=== PATIENT | male | born 1990 | race Two or more races ===

== ENCOUNTER 2025-01-08 06:43 | Emergency (ER) | payer OTHER ==
[~2025-01-08] VITALS: Ht 167.6 cm; Wt 65.0 kg
[2025-01-08] MEDS: ONDANSETRON ODT 4 MG TAB PO ONE (07:19)
[2025-01-08 07:20] VITALS: PULSE 105; RESP 18; O2SAT 97
[2025-01-08 07:22] LABS: Basophils # (auto) 0 10 ^3/uL (0-0.2); Basophils % (auto) 0.4 % (0.0-2.0); Eosinophils # (auto) 0.2 10 ^3/uL (0-0.8); Eosinophils % (auto) 2.3 % (0.0-7.0); Hematocrit 47.3 % (41.0-53.0); Hemoglobin 15.8 g/dL (13.5-17.5); Lymphocytes # (auto) 1.5 10 ^3/uL (0.4-5.4); Lymphocytes % (auto) 17.9 % (10.0-50.0); Mean Corpuscular Hemoglobin 29.1 pg (28.0-32.0); Mean Corpuscular Hgb Conc. 33.5 g/dL (32.0-36.0); Mean Corpuscular Volume 86.8 fL (80.0-100.0); Monocytes # (auto) 0.9 10 ^3/uL (0-1.3); Monocytes % (auto) 10.6 % (0.0-12.0); Neutrophils # (auto) 5.8 10 ^3/uL (1.6-8.6); Neutrophils % (auto) 68.8 % (37.0-80.0); Platelet Count (auto) 221 10^3/uL (140-450); Red Blood Cells 5.45 10^6/uL (4.5-5.90); Red Cell Distribution Width 12.9 % (11.8-14.3); White Blood Cell 8.4 10^3/uL (4.4-10.8)
[2025-01-08 07:32] LABS: Alanine Aminotransferase 38 U/L (7-40); Albumin 4.4 g/dL (3.2-4.8); Alkaline Phosphatase 81 U/L (46-116); Anion Gap 8 (5-15); Aspartate Aminotransferase 24 U/L (13-40); BUN/Creatinine Ratio 12.8 (10.0-20.0); Blood Urea Nitrogen 12 mg/dL (9-23); Calcium 9.1 mg/dL (8.7-10.4); Carbon Dioxide 28 mmol/L (20-31); Chloride 105 mmol/L (98-107); Potassium 4.2 mmol/L (3.5-5.1); Sodium 141 mmol/L (136-145); Total Protein 6.7 g/dL (5.7-8.2)
[2025-01-08 07:33] LABS: Bilirubin, Total 0.5 mg/dL (0.2-1.0)
[2025-01-08 07:40] LABS: Urine Bacteria None Seen /hpf (None Seen)
[2025-01-08 07:41] LABS: Glucose 63 mg/dL (74-106)
--- NOTE | 2025-01-08 07:43 | ED.PDOC ---
GI ASSESSMENT HPI Comments 34 year old male presents to the ED with a chief complaint of diarrhea onset 2 days. Patient states he was admitted in a hospital for about 25 days due to diarrhea, was discharged about 2 weeks ago with antibiotics, finished course. Patient noticed diarrhea stopped 3 days ago, began taking Pepto Bismol, began experiencing black tarry stools, nausea, burning with urination 2 days ago. He has also been experiencing flu like symptoms including cough, congestion. Denies any PMHx as well as fever, chills, vomiting, hematuria, hematemesis. No other symptoms or modifying factors present at this time. Chief Complaint: Diarrhea Time Seen by MD: 06:50 Primary Care Provider: Yoly Mayo Reviewed Notes: Medications, Allergies Allergies: Coded Allergies: NO KNOWN ALLERGIES (Unverified , 01/08/25) Information Source: Patient Mode of Arrival: Ambulatory Timing: Days Duration: Since onset Prehospital treatment: Other (Pepto ) Quality: Sharp Vomitus: None Stool: Tarry Severity: Moderate Recent: None Recent Hx of: None Pain Location: Diffuse Modifying Factors: Nothing Associated sign and symptoms: Nausea, Diarrhea, Abdominal Pain Past Medical History PAST MEDICAL HISTORY: Denies Surgical History (Other): RT knee surgery Family History Family History: Reviewed,noncontributory to illness, No family hx of Cancer, No family hx of DM, No family hx of Heart bella, No family hx of HTN, No family hx ofKidney bella, No family hx of Liver bella, No family hx of Lung bella, No family hx of Stroke Social History Smoker: Non-Smoker Alcohol: Denies ETOH Use Drugs: Denies Drug Use Lives In: Home Constitutional: denies: chills, diaphoresis, fatigue, fever, malaise, sweats, weakness, others EENTM: reports: nose congestion; denies: blurred vision, double vision, ear bleeding, ear discharge, ear drainage, ear pain, ear ringing, eye pain, eye redn ess, hearing loss, mouth pain, mouth swelling, nasal discharge, nose bleeding, nose pain, photophobia, tearing, throat pain, throat swelling, voice changes, others Respiratory: reports: cough; denies: hemoptysis, orthopnea, SOB at rest, shortness of breath, SOB with excertion, stridor, wheezing, others Cardiovascular: denies: chest pain, dizzy spells, diaphoresis, Dyspnea on exertion, edema, irregular heart beat, left arm pain, lightheadedness, palpitations, PND, syncope, others Gastrointestinal: reports: abdominal pain, diarrhea, nausea, others (dark tarry stool); denies: abdomen distended, blood streaked bowels, constipated, dysphagia, difficulty swallowing, hematemesis, melena, poor appetite, poor fluid intake, rectal bleeding, rectal pain, vomiting Genitourinary: denies: burning, dysuria, flank pain, frequency, hematuria, incontinence, penile discharge, penile sore, pain, testicle pain, testicle swelling, urgency, others Neurological: denies: dizziness, fainting, headache, left sided numbness, left sided weakness, numbness, paresthesia, pre-existing deficit, right sided numbness, right sided weakness, seizure, speech problems, tingling, tremors, weakness, others Musculoskeletal: denies: back pain, gout, joint pain, joint swelling, muscle pain, muscle stiffness, neck pain, others Integumetry: denies: bruises, change in color, change in hair/nails, dryness, laceration, lesions, lumps, rash, wounds, others Allergic/Immunocompromised: denies: Difficulty Healing, Frequent Infections, Hives, Itching, others Hematologic/Lymphatic: denies: anemia, blood clots, easy bleeding, easy bruising, swollen glands, others Endocrine: denies: excessive hunger, excessive sweating, excessive thirst, excessive urination, flushing, intolerance to cold, intolerance to heat, unexplained weight gain, unexplained weight loss, others Psychiatric: denies: anxiety, bipolar disorder, depression, hopeless, panic disorder, schizophrenia, sleepless, suicidal, others All Other Systems: Reviewed and Negative Physical Exam General Appearance: No Apparent Distress, Normal HEENT: Normal ENT Inspection, Pharynx Normal, TMs Normal Neck: Full Range of Motion, Non-Tender, Normal, Normal Inspection Respiratory: Chest Non-Tender, Lungs Clear, No Accessory Muscle Use, No Respiratory Distress, Normal Breath Sounds Cardiovascular: No Edema, No JVD, No Murmur, No Gallop, Normal Peripheral Pulses, Regular Rate/Rhythm Breast Exam: Deferred Gastrointestinal: No Organomegaly, Non Tender, No Pulsatile Mass, Normal Bowel Sounds, Soft Genitalia: Deferred Pelvic: Deferred Rectal: Deferred Extremities: No calf tenderness, Normal capillary refill, Normal inspection, Normal range of motion, Non-tender, No pedal edema Musculoskeletal : Apperance: Normal Neurologic: Alert, automation machine operator II-XII nml as Tested, No Motor Deficits, Normal Affect, Normal Mood, No Sensory Deficits Cerebellar Function: Normal Reflexes: Normal Skin: Dry, Normal Color, Warm Lymphatic: No Adenopathy Was a procedure done? Was a procedure done?: No GI differential Dx Differential Diagnosis: Gastroenteritis, GI hemorrhage, UTI, Electrolyte Imbalance Other Differential Diagnosis URI, Pepto Bismol use , UTI, cystitis, gonorrhea chlamydia X-Ray, Labs, Meds, VS Vital Signs Date Time Temp Pulse Resp B/P (MAP) Pulse Ox O2 Delivery O2 Flow Rate FiO2 01/08/25 09:20 98.7 90 16 107/84 (92) 97 98.7 01/08/25 07:20 105 18 97 Room Air* 0 21 01/08/25 07:19 105 18 141/87 (105) 97 01/08/25 06:50 98.2 101 18 119/76 (90) 96 98.2 Lab Test 01/08/25 07:06 01/08/25 07:00 01/08/25 06:00 Range/Units White Blood Count 8.4 4.4-10.8 10^3/uL Red Blood Count 5.45 4.5-5.90 10^6/uL Hemoglobin 15.8 13.5-17.5 g/dL Hematocrit 47.3 41.0-53.0 % Mean Corpuscular Volume 86.8 80.0-100.0 fL Mean Corpuscular Hemoglobin 29.1 28.0-32.0 pg Mean Corpuscular Hemoglobin Concent 33.5 32.0-36.0 g/dL Red Cell Distribution Width 12.9 11.8-14.3 % Platelet Count 221 140-450 10^3/uL Mean Platelet Volume 7.7 6.9-10.8 fL Neutrophils (%) (Auto) 68.8 37.0-80.0 % Lymphocytes (%) (Auto) 17.9 10.0-50.0 % Monocytes (%) (Auto) 10.6 0.0-12.0 % Eosinophils (%) (Auto) 2.3 0.0-7.0 % Basophils (%) (Auto) 0.4 0.0-2.0 % Neutrophils # (Auto) 5.8 1.6-8.6 10 ^3/uL Lymphocytes # (Auto) 1.5 0.4-5.4 10 ^3/uL Monocytes # (Auto) 0.9 0-1.3 10 ^3/uL Eosinophils # (Auto) 0.2 0-0.8 10 ^3/uL Basophils # (Auto) 0 0-0.2 10 ^3/uL Nucleated Red Blood Cells 0.0 % Sodium Level 141 136-145 mmol/L Potassium Level 4.2 3.5-5.1 mmol/L Chloride Level 105 98-107 mmol/L Carbon Dioxide Level 28 20-31 mmol/L Anion Gap 8 5-15 Blood Urea Nitrogen 12 9-23 mg/dL Creatinine 0.94 0.700-1.30 mg/dL Glomerular Filtration Rate Calc 110 >90 mL/min BUN/Creatinine Ratio 12.8 10.0-20.0 Serum Glucose 63 L 74-106 mg/dL Calcium Level 9.1 8.7-10.4 mg/dL Total Bilirubin 0.5 0.2-1.0 mg/dL Aspartate Amino Transferase (AST) 24 13-40 U/L Alanine Aminotransferase (ALT) 38 7-40 U/L Alkaline Phosphatase 81 46-116 U/L Total Protein 6.7 5.7-8.2 g/dL Albumin 4.4 3.2-4.8 g/dL Urine Color Light-yellow Yellow Urine Clarity Clear Clear Urine pH 7.0 5.0-9.0 Urine Specific [place] 1.019 1.001-1.035 Urine Protein Negative Negative Urine Ketones Negative Negative Urine Blood 1+ H Negative /uL Urine Nitrite Negative Negative Urine Bilirubin Negative Negative Urine Urobilinogen Normal Negative mg/dL Urine Leukocyte Esterase Negative Negative /uL Urine RBC 35 0 - 3 /hpf Urine Microscopic WBC 1 0-3 /HPF Urine Squamous Epithelial Cells Few <5 /hpf Urine Bacteria None seen None Seen /hpf Urine Glucose Normal Normal mg/dL Stool Occult Blood Negative Negative Stool Occult Blood Sample #3 Negative Current Medications Medications (Trade) Dose Ordered Sig/Ed Route Start Time Stop Time Status Last Admin Ondansetron HCl (Zofran Po) 4 mg ONCE ONCE PO 01/08/25 07:00 01/08/25 07:01 DC 01/08/25 07:19 34-year-old male presents here with multiple chief complaints including black stools that he has had for 2 days. He states previous to this he has had diarrhea for which he was hospitalized for a month. He states however as soon as he took the Pepto-Bismol 2 diarrhea has stopped and now he has black stools. The hemoccult testing was done which is negative for blood. Suspect black is likely from Pepto-Bismol and I advised him of this. He does however have +1 blood in his urine and he does report burning with urination x1 month. He is sexually active with multiple partners and does not use protection. At this time I will be treating him presumptively for possible gonorrhea chlamydia. GC testing has been ordered. I have given him Rocephin IM in the ER and prescription for doxycycline x7 days. Advised him to abstain from intercourse x7 days. Additionally he has a evidence for URI on examination. On my evaluation abdomen is soft and nontender. I have given him Zofran in the ER clinically he is well-appearing. Advised him to follow up with his PCP later this week which he does have an appointment in 2 days. Advised him to return if symptoms worsen or persist. Patient agreeable to plan. Labs has been done which are largely unremarkable. Time of 1ST Reevaluation: 07:20 Reevaluation 1ST: Unchanged Time of 2ND Reevaluation: 10:12 Reevaluation 2ND: Improved Patient Education/Counseling: Diagnosis, Treatment, Prognosis, Need For Follow Up Family Education/Counseling: No Family Present Departure 1 Departure Time of Disposition: 10:05 Impression: Primary Impression: Abdominal pain Qualified Codes: R10.84 - Generalized abdominal pain Additional Impressions: Black stools URI (upper respiratory infection) Qualified Codes: J06.9 - Acute upper respiratory infection, unspecified Concern about STD in male without diagnosis Disposition: 01 HOME / SELF CARE / HOMELESS Condition: Fair e-Prescriptions Ondansetron Odt 4MG Tab (ZOFRAN PO) 4 Mg Tb 4 MG PO Q6HPRN PRN, #14 TAB ODT TAB-DISSOLVE IN MOUTH, THEN SWALLOW Prov: RENATA FIGUEROA MD 01/08/25 Doxycycline Hyclate (Doxycycline Hyclate) 100 Mg Cap 100 MG PO BID for 7 Days, #14 CAP Prov: RENATA FIGUEROA MD 01/08/25 Discharged With: Self Critical Care Note Critical Care Time?: No Stability Stability form required: No Heart Score Heart Score: Heart Score Response (Comments) Value History N/A 0 EKG N/A 0 Age N/A 0 Risk Factors N/A 0 Troponin N/A 0 Total 0 I personally scribed for RENATA FIGUEROA MD ([email or web address]) on 01/08/25 at 07:43. Electronically submitted by Nessa Jarvis ([email or web address]). RENATA FIGUEROA MD January 08, 2025 07:43
[2025-01-08 07:47] LABS: Urine Blood 1+ /uL (Negative); Urine Clarity Clear (Clear); Urine Color Light-Yellow (Yellow); Urine Protein, UAD Negative (Negative); Urine Specific Gravity 1.019 (1.001-1.035); Urine Squamous Epithelial Cell FEW /hpf (<5); Urine Urobilinogen Normal (Negative); Urine WBC 1 /HPF (0-3)
[2025-01-08] MEDS ORDERED: ZOFR4T PO (10:12)
[2025-01-08] MEDS ORDERED: DOXY100C4 PO (10:12)
[2025-01-08 10:29] VITALS: BP 116/83; PULSE 101; RESP 16; TEMP 98; O2SAT 99
[2025-01-08] MEDS: cefTRIAXone W LIDOCAINE 500 MG IM IM ONE (10:36)
[2025-01-10 20:07] LABS: Chlamydia Trachomatis, NAA Negative (Negative); Neisseria gonorrhoeae, NAA Negative (Negative)
== END 2025-01-08 10:36 | disposition home or self-care (01) ==
LOC: ER 06:43
DX: K92.1 Melena (principal); J06.9 Acute upper respiratory infection, unspecified; R10.84 Generalized abdominal pain; Z98.890 Other specified postprocedural states
CPT/HCPCS: 36415; 80053; 81001; 82270; 85025; 87491; 87591; 96372; 99283; J0696; Q0162